=== PATIENT | female | born 1955 ===

== ENCOUNTER 2023-03-18 06:30 | Day surgery (SDC) | payer OTHER ==
[~2023-03-18] VITALS: Ht 157.5 cm; Wt 57.6 kg
[~2023-03-18 06:30] MED LIST: TRAMADOL HCL E100 M1 PO; VOLTAREN ARTHRI20 GM PO
== END 2023-03-18 16:10 | disposition home or self-care (01) ==
LOC: CIR.AMB 06:30
PROVIDERS: ATTEND Orthopaedic Surgery Hand Surgery
DX: S52.531A Colles' fracture of right radius, initial encounter for closed fracture (principal); I10 Essential (primary) hypertension; Z20.822 Contact with and (suspected) exposure to COVID-19; Z88.2 Allergy status to sulfonamides; Z88.1 Allergy status to other antibiotic agents
CPT/HCPCS: 25609; 25118; 25280; L8699